=== PATIENT | female | born 1995 | race American Indian/Alaskan Native ===

== ENCOUNTER 2018-08-08 10:23 | Emergency (ER) | payer OTHER, BC ==
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
[2018-08-08] MEDS ORDERED: TORADOL IM ONE (13:55)
[2018-08-08 14:26] LABS: HCG Qualitative,Urine Negative (Negative)
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
[2018-08-08 17:22] VITALS: BP 125/74
== END 2018-08-08 17:26 | disposition home or self-care (01) ==
LOC: ED 10:23
DX: S86.912A Strain of unspecified muscle(s) and tendon(s) at lower leg level, left leg, initial encounter (principal); S96.912A Strain of unspecified muscle and tendon at ankle and foot level, left foot, initial encounter; M94.0 Chondrocostal junction syndrome [Tietze]; V49.59XA Passenger injured in collision with other motor vehicles in traffic accident, initial encounter; Y93.89 Activity, other specified; Y92.488 Other paved roadways as the place of occurrence of the external cause; Y99.8 Other external cause status
CPT/HCPCS: 71250; 81025; 93005; 93010; 93971; 96372; 99284; J1885